=== PATIENT | female | born 1945 | race Asian ===

== ENCOUNTER → 2021-01-24 | Outpatient (CLI) | payer OTHER | LOC: PET 09:10 | PROVIDERS: ATTEND Internal Medicine Critical Care Medicine | DX: R91.8 Other nonspecific abnormal finding of lung field (principal); M79.89 Other specified soft tissue disorders; N85.2 Hypertrophy of uterus; R91.1 Solitary pulmonary nodule; J98.4 Other disorders of lung; K76.0 Fatty (change of) liver, not elsewhere classified ==